=== PATIENT | female | born 1940 | race Caucasian/White ===

== ENCOUNTER 2020-12-25 10:00 | Emergency (ER) | payer MEDICARE ==
[~2020-12-25] VITALS: Ht 152.4 cm; Wt 78.6 kg
[~2020-12-25 10:00] MED LIST: SULF1TAB23 PO; THYR60TA PO
--- NOTE | 2020-12-25 10:06 | PHYS DOC ---
Past History Past Medical History: Asthma, High Cholesterol, Hypothyroid, TIA Past Surgical History: Cholecystectomy, Hysterectomy Alcohol Use: None Drug Use: None General Adult EDM: Chief Complaint: ALTERED MENTAL STATUS HPI: HPI: 80 yo F PMH Asthma, High Cholesterol, Hypothyroid, and TIA presents to the ed bibems as a code stroke, c/o "I just didn't feel right," with c/o "burst in my head," that started at 4am, and pt went "ker-plop" to the floor after her right leg gave out. Reports LOC and was able to get up right after but states she feels "woosy," like she can't keep her head up. Reports right arm/leg weakness that started upon wakening at 4am (went to bed 11pm). Also c/o right sided anterior neck pain. Has no active headache. States she has pain from her right hip down her leg, "like I'm having a DVT." Per EMS has a h/o stuttering but usually not as bad as it is today. Daughter later present in ED (daughter and son have dpoa) and report patient is only on medication for heartburn-follows with Dr. Goodrich.. Review of Systems: Review of Systems: Constitutional: Denies fever or chills Eyes: Denies change in visual acuity HENT: Denies nasal congestion or sore throat Respiratory: Denies cough or shortness of breath Cardiovascular: Denies chest pain or edema GI: Denies abdominal pain, nausea, vomiting, bloody stools or diarrhea : Denies dysuria Musculoskeletal: Denies back pain or joint pain Integument: Denies rash Neurologic: Denies headache, focal weakness or sensory changes Endocrine: Denies polyuria or polydipsia Lymphatic: Denies swollen glands Psychiatric: Denies depression or anxiety Allergies: Allergies: Allergies Coded Allergies Type Severity Reaction Last Updated Verified Penicillins Allergy Unknown 05/16/16 Yes atorvastatin Allergy Unknown 05/16/16 Yes cephalexin Allergy Unknown 05/16/16 Yes ciprofloxacin Allergy Unknown WEAKNESS 05/16/16 Yes diazepam Allergy Unknown 05/16/16 Yes tramadol Allergy Unknown 05/16/16 Yes Physical Exam: PE: Constitutional: Well developed, well nourished, no acute distress, non-toxic appearance. HENT: Normocephalic, atraumatic, stuttered/comprehensible speech Eyes: PERRLA, EOMI, conjunctiva normal, no discharge. Neck: Normal range of motion, supple, Cardiovascular: S1/2 present, regular rhythm Lungs & Thorax: Speaking in full sentences, bilateral equal chest rise, no tachypnea or increased work of breathing Abdomen: soft, no tenderness, Skin: Warm, dry, no erythema, no rash. [] Back: No midline tenderness, no CVA tenderness. [] Extremities: No tenderness, no cyanosis, Neurologic: 3 points NIH Stroke Scale, Alert and oriented to self /place/month/president-does not know the year, moves all 4 extremities - drift of RUE/RLE and decreased sensation RLE, no focal deficits noted. [] Psychologic: Affect normal, judgement normal, mood normal. [] EKG: EKG: Sinus rhythm at 63 bpm, no axis deviation, normal intervals, T wave inversion 3 V1 and V2, right bundle branch block present, QRS 132, no ST elevations or ST depressions, small nonpathological Q waves in 1 and aVL, no active chest pain Radiology/Procedures: Radiology/Procedures: IMAGING REPORT Signed PATIENT: AUBRIE LUJAN ACCOUNT: [id number] : 1940 LOCATION: ER AGE: 80 SEX: F EXAM STATUS: REG ER ORD. PHYSICIAN: LIUDMILA DAVENPORT DO REASON: headache, right neck pain, PROCEDURE: CT CODE STROKE HEAD WO CT scan of the head without contrast 12/25/20 Clinical History: Headache. Right sided pain. Code stroke. Technique: Unenhanced, contiguous, 5 mm axial sections were obtained through the head. One or more of the following individualized dose reduction techniques were utilized for this study: 1. Automated exposure control. 2. Adjustment of the mA and/or kV according to patient size. 3. Use of iterative reconstruction technique. Findings: There is generalized parenchymal atrophy. Areas of decreased attenuation are seen within the periventricular and subcortical white matter of both cerebral hemispheres consistent with areas of small vessel ischemic disease. No acute parenchymal abnormality is seen. No extra-axial fluid collection is noted. No skull fracture is seen. Impression: No acute intracranial abnormality is seen. This result was called to Dr. Davenport at 1012 hours. FOR INTERNAL CODING PURPOSES RESULT CODE: (C) Electronically signed by: Shamar Tian MD (12/25/2020 10:15 AM) [id number] DICTATED AND SIGNED BY: SHAMAR TIAN MD DATE: 12/25/20 1010 CC: LIUDMILA DAVENPORT DO; CARMEN GOODRICH MD ~MTH0 0 IMAGING REPORT Signed PATIENT: AUBRIE LUJAN ACCOUNT: [id number] : 1940 LOCATION: ER AGE: 80 SEX: F EXAM STATUS: REG ER ORD. PHYSICIAN: LIUDMILA DAVENPORT DO REASON: nekc pain PROCEDURE: CHEST AP ONLY EXAM: Chest, single view. HISTORY: Pain. COMPARISON: None. FINDINGS: A frontal view of the chest is obtained. There is no infiltrate, pleural effusion or pneumothorax. The heart is normal in size. IMPRESSION: No acute pulmonary finding. Electronically signed by: Lashell Harvey MD (12/25/2020 10:16 AM) [id number] DICTATED AND SIGNED BY: LASHELL HARVEY MD DATE: 12/25/20 1015 CC: LIUDMILA DAVENPORT DO; CARMEN GOODRICH MD ~MTH0 0 IMAGING REPORT Signed PATIENT: AUBRIE LUJAN ACCOUNT: [id number] : 1940 LOCATION: ER AGE: 80 SEX: F EXAM STATUS: REG ER ORD. PHYSICIAN: LIUDMILA DAVENPORT DO REASON: right neck pain PROCEDURE: CT ANGIOGRAPHY HEAD AND NECK EXAM: Head angiogram of the head and neck with intravenous contrast; cervical spine CT without contrast. HISTORY: Neck pain. TECHNIQUE: Computed tomographic images of the head and neck were obtained following the administration of contrast and noncontrast images of the cervical spine were obtained. 3-dimensional maximum intensity projection images were obtained. *One or more of the following individualized dose reduction techniques were utilized for this examination: 1. Automated exposure control. 2. Adjustment of the mA and/or kV according to patient size. 3. Use of iterative reconstruction technique. COMPARISON: None. FINDINGS: The visualized aortic arch is normal in caliber. There is calcified atherosclerotic plaque involving the aortic arch and arch great vessels. The origins of the innominate and left common carotid arteries are excluded from the [id number]. There is no significant stenosis at the origin of the right subclavian or common carotid artery or left subclavian artery. There is calcified atherosclerotic plaque at the origin of the right vertebral artery, with 50-69 percent stenosis. There is calcified atherosclerotic plaque within the distal right vertebral artery resulting in 50 percent stenosis and slight relative decreased caliber of the right vertebral artery extending to the basilar artery. The vertebral arteries are otherwise codominant and widely patent. There is calcified atherosclerotic plaque involving the right carotid bulb and origin of the right internal carotid artery, with less than 25 percent stenosis. There is minimal calcified plaque at the left carotid bulb and origin of the left internal carotid artery, without stenosis. There is calcified atherosclerotic plaque within the cavernous and supraclinoid internal carotid arteries. This results in less than 50 percent stenosis on the left and 50-69 percent stenosis on the right. The basilar artery is widely patent. The posterior communicating arteries are likely developmentally absent. There is a tiny communicating artery. There is no aneurysm. There is no vascular malformation. There is no suspicious enhancing lesion. There is mild cerebral atrophy. There is decreased attenuation within the cerebral white matter, most commonly due to chronic small vessel disease in patients of this age. There is evidence of lens surgery. There is a small left maxillary sinus mucous retention cyst. The mastoid air cells are clear. The p arotid and submandibular glands are unremarkable. There is a small calcification along the anterior aspect of the right thyroid gland. No thyroid nodule is seen. There is no neck lymphadenopathy. The airways midline and mildly patent. The lung apices are unremarkable. There is minimal anterolisthesis of C3 on C4 and C4 on C5. There is degenerative endplate remodeling throughout the cervical and visualized thoracic spine, primarily at C6-C7. There is disc space narrowing, vacuum phenomenon and Schmorl's node formation at this level. There is multilevel facet arthropathy. The right facet joints at C2-C3 are fused. There is no fracture or suspicious osseous lesion. At C2-C3, there is mild right facet arthropathy. There is no stenosis. At C3-C4, there is a shallow posterior central to left paracentral disc protrusion. There is moderate right greater than left facet arthropathy. There is no stenosis. At C4-C5, there is a disc bulge. There is severe right and moderate left facet arthropathy. There is no stenosis. At C5-C6, there is a disc bulge and endplate remodeling. There is severe right and moderate left facet arthropathy. There is left uncovertebral arthropathy. There is no stenosis. At C6-C7, there is a disc bulge and endplate osteophytosis. There is mild bilateral facet arthropathy. There is uncovertebral arthropathy. There is no stenosis. IMPRESSION: 1. Partially calcified atherosclerotic plaque involving the greater than left cavernous and supraclinoid internal carotid arteries, resulting in 50-69 percent stenosis on the right and less than 50 percent stenosis on the left. There is also mild atherosclerotic plaque involving the carotid bifurcations with less than 50 percent stenosis. 2. Partially calcified atherosclerotic plaque involving the origin and distal aspects of the right vertebral artery, resulting in 50-69 percent stenosis of the origin and less than 50 percent stenosis within its distal aspect. 3. No evidence of arterial occlusion or aneurysm. 4. Multilevel degenerative change involving the cervical spine, described above. There is no acute osseous finding. PQRS Compliance Statement - Stenosis calculations for CT, MR and conventional angiography are based upon measurement of the distal ICA diameter in accordance with the NASCET methodology. Stenosis calculations for carotid ultrasound studies are derived from validated velocity criteria which are known to correlate with the NASCET methodology. Electronically signed by: Lashell Harvey MD (12/25/2020 11:51 AM) [id number] DICTATED AND SIGNED BY: LASHELL HARVEY MD DATE: 12/25/20 1140 CC: LIUDMILA DAVENPORT DO; CARMEN GOODRICH MD ~MTH0 0 Heart Score: C/O Chest Pain: No Risk Factors: Risk Factors: DM, Current or recent (<one month) smoker, HTN, HLP, family history of CAD, obesity. Risk Scores: Score 0 - 3: 2.5% MACE over next 6 weeks - Discharge Home Score 4 - 6: 20.3% MACE over next 6 weeks - Admit for Clinical Observation Score 7 - 10: 72.7% MACE over next 6 weeks - Early Invasive Strategies Course & Med Decision Making: Course & Med Decision Making Pertinent Labs and Imaging studies reviewed. (See chart for details) Concern for right upper extremity and lower extremity weakness, LKW 11pm with syncope. Initially spoke to Dr. Orona, vascular surgery who informed me atherosclerotic plaque involving carotid arteries are intracranial not cervical. I discussed with [facility] Dr. Florian neurology interventionalist, Dr. Lamas, neurologist and Dr. Lopez, admitting physician regarding intracranial carotid stenosis, worse on right than left. Their recommendations are that this area of the brain is very common to have calcifications and are difficult to evaluate on the CT of the head, most likely an overcall radiologic reading. They recommended MRI and MRA of the head and to initiate aspirin and Plavix if no contraindications. They also mention intervention in this area of the brain is typically performed on last 90% occluded and symptomatic-even still there is a risk of stroke "this high up." We will transfer to [facility] for syncope evaluation and MRI (no MRI at [facility]), for higher level of care. Patient's labs and urinalysis are unremarkable, no renal insufficiency. Patient not on any medications for hypertension or hyperlipidemia. Patient stable at time of transfer and her and daughter agree with this plan. I have spoken with the patient and/or caregivers. I have explained the patient's condition, diagnosis and treatment plan based on the information available to me at this time. I have answered the patient's and/or caregivers questions and answered any concerns. The patient and/or caregivers have as good an understanding of the patient's diagnosis, condition and treatment plan as can be expected at this point. The patient has been stabilized within the capability of the emergency department. The patient will be transported for further care and management or will be moved to an observation or inpatient service. I have communicated with the staff or medical practitioner taking over this patient's care. Critical Care: Authorized and Performed by: Liudmila Davenport DO Total critical care time: approximately 35 minutes Due to a high probability of clinically significant, life threatening deterioration, the patient required my highest level of preparedness to intervene emergently and I personally spent this critical care time directly and personally managing the patient. This critical care time included obtaining a history; examining the patient; pulse oximetry; ventilator management if necessary; ordering and review of studies; arranging urgent treatment with development of a management plan; evaluation of patient's response to treatment; frequent reassessment; discussion with patient/family; and, discussions with other providers. This critical care time was performed to assess and manage the high probability of imminent, life-threatening deterioration that could result in multi-organ failure. It was exclusive of separately billable procedures and treating other patients and teaching time. Please see MDM section and the rest of the note for further information on patient assessment and treatment. Dragon Disclaimer: Dragon Disclaimer: This electronic medical record was generated, in whole or in part, using a voice recognition dictation system. Departure Departure: Impression: Primary Impression: Right sided abdominal pain Additional Impressions: Syncope and collapse Intracranial atherosclerosis Disposition: 05 DC/TRF OTHER TYPE INSTITUTI ([facility], Dr. Hoffman) Admitting Physician: Other Condition: CRITICAL Referrals: LIUDMILA TIPTON (PCP) LIUDMILA DAVENPORT DO Dec 25, 2020 10:06
--- NOTE | 2020-12-25 10:17 | RAD ---
CT scan of the head without contrast 12/25/20 Clinical History: Headache. Right sided pain. Code stroke. Technique: Unenhanced, contiguous, 5 mm axial sections were obtained through the head. One or more of the following individualized dose reduction techniques were utilized for this study: 1. Automated exposure control. 2. Adjustment of the mA and/or kV according to patient size. 3. Use of iterative reconstruction technique. Findings: There is generalized parenchymal atrophy. Areas of decreased attenuation are seen within t he periventricular and subcortical white matter of both cerebral hemispheres consistent with areas of small vessel ischemic disease. No acute parenchymal abnormality is seen. No extra-axial fluid collec tion is noted. No skull fracture is seen. Impression: No acute intracranial abnormality is seen. This result was called to Dr. Vidal at 1012 hours. FOR INTERNAL CODING PURPOSES RESULT CODE: (C) Electronically signed by: Shamar Tian MD (12/25/2020 10:15 AM) [id number]
--- NOTE | 2020-12-25 10:18 | RAD ---
EXAM: Chest, single view. HISTORY: Pain. COMPARISON: None. FINDINGS: A frontal view of the chest is obtained. There is no infiltrate, pleural effusion or pneumo thorax. The heart is normal in size. IMPRESSION: No acute pulmonary finding. Electronically signed by: Vicki Peacock MD (12/25/2020 10:16 AM) [id number]
[2020-12-25 10:33] LABS: BASO % 1 % (0-3); EOS # 0.1 x10^3/uL (0.0-0.7); EOS % 2 % (0-3); HEMATOCRIT 41.3 % (36.0-47.0); HEMOGLOBIN 13.5 g/dL (12.0-15.5); LYMPH # 1.4 x10^3/uL (1.0-4.8); LYMPH % 34 % (24-48); MEAN CORPUSCULAR HEMOGLOBIN 29 pg (25-35); MEAN CORPUSCULAR HGB CONC 33 g/dL (31-37); MEAN CORPUSCULAR VOLUME 90 fL (79-100); MONO # 0.4 x10^3/uL (0.0-1.1); MONO % 9 % (0-9); NEUT # 2.3 x10^3uL (1.8-7.7); NEUT % 55 % (31-73); PLATELET COUNT 210 x10^3/uL (140-400); RED BLOOD COUNT 4.61 x10^6/uL (3.50-5.40); RED CELL DISTRIBUTION WIDTH 14.5 % (11.5-14.5); WHITE BLOOD COUNT 4.3 x10^3/uL (4.0-11.0)
[2020-12-25 10:45] LABS: CALCIUM 9.3 mg/dL (8.5-10.1); CREATININE 0.7 mg/dL (0.6-1.0); GFR 80.1
[2020-12-25] MEDS ORDERED: IOHEXOL 350 MG/ML 100 ML VIAL. IV ONE (10:45)
[2020-12-25 10:58] LABS: ALBUMIN 3.7 g/dL (3.4-5.0); ALBUMIN/GLOBULIN RATIO 0.9 (1.0-1.7); MAGNESIUM 2.1 mg/dL (1.8-2.4); TOTAL BILIRUBIN 0.4 mg/dL (0.2-1.0); TOTAL PROTEIN 7.6 g/dL (6.4-8.2)
[2020-12-25 11:30] LABS: BARBITURATES NEG (NEG); BENZODIAZEPINES NEG (NEG); BILIRUBIN,URINE NEG (NEG); CANNABINOIDS NEG (NEG); CLARITY,URINE CLEAR; COCAINE NEG (NEG); COLOR,URINE YELLOW; GLUCOSE,URINE NEG (NEG); METHADONE NEG (NEG); OPIATES NEG (NEG); PHENCYCLIDINE NEG (NEG)
[2020-12-25 11:31] LABS: BACTERIA,URINE FEW /HPF (0-FEW); NITRITE,URINE NEG (NEG); RBC,URINE 0 /HPF (0-2); SQUAMOUS EPITHELIAL CELL,UR FEW /LPF; UROBILINOGEN,URINE 0.2 mg/dL (0.2 mg/dL); WBC,URINE 0 /HPF (0-4)
[2020-12-25 11:35] LABS: AMPHETAMINE/METHAMPHETAMINE NEG (NEG)
--- NOTE | 2020-12-25 11:53 | RAD ---
EXAM: Head angiogram of the head and neck with intravenous contrast; cervical spine CT without contra st. HISTORY: Neck pain. TECHNIQUE: Computed tomographic images of the head and neck were obtained following the administratio n of contrast and noncontrast images of the cervical spine were obtained. 3-dimensional maximum inten sity projection images were obtained. *One or more of the following individualized dose reduction techniques were utilized for this examina tion: 1. Automated exposure control. 2. Adjustment of the mA and/or kV according to patient size. 3. Use of iterative reconstruction technique. COMPARISON: None. FINDINGS: The visualized aortic arch is normal in caliber. There is calcified atherosclerotic plaque involving the aortic arch and arch great vessels. The origins of the innominate and left common carot id arteries are excluded from the [id number]. There is no significant stenosis at the origin of th e right subclavian or common carotid artery or left subclavian artery. There is calcified atheroscler otic plaque at the origin of the right vertebral artery, with 50-69 percent stenosis. There is calcif ied atherosclerotic plaque within the distal right vertebral artery resulting in 50 percent stenosis and slight relative decreased caliber of the right vertebral artery extending to the basilar artery. The vertebral arteries are otherwise codominant and widely patent. There is calcified atherosclerotic plaque involving the right carotid bulb and origin of the right in ternal carotid artery, with less than 25 percent stenosis. There is minimal calcified plaque at the l eft carotid bulb and origin of the left internal carotid artery, without stenosis. There is calcified atherosclerotic plaque within the cavernous and supraclinoid internal carotid arteries. This results in less than 50 percent stenosis on the left and 50-69 percent stenosis on the right. The basilar ar leon is widely patent. The posterior communicating arteries are likely developmentally absent. There is a tiny communicating artery. There is no aneurysm. There is no vascular malformation. There is no suspicious enhancing lesion. There is mild cerebral atrophy. There is decreased attenuation within the cerebral white matter, most commonly due to chronic small vessel disease in patients of this age. There is evidence of lens surg liza. There is a small left maxillary sinus mucous retention cyst. The mastoid air cells are clear. Th e parotid and submandibular glands are unremarkable. There is a small calcification along the anterio r aspect of the right thyroid gland. No thyroid nodule is seen. There is no neck lymphadenopathy. The airways midline and mildly patent. The lung apices are unremarkable. There is minimal anterolisthesis of C3 on C4 and C4 on C5. There is degenerative endplate remodeling throughout the cervical and visualized thoracic spine, primarily at C6-C7. There is disc space narrow ing, vacuum phenomenon and Schmorl's node formation at this level. There is multilevel facet arthropa thy. The right facet joints at C2-C3 are fused. There is no fracture or suspicious osseous lesion. At C2-C3, there is mild right facet arthropathy. There is no stenosis. At C3-C4, there is a shallow posterior central to left paracentral disc protrusion. There is moderate right greater than left facet arthropathy. There is no stenosis. At C4-C5, there is a disc bulge. There is severe right and moderate left facet arthropathy. There is no stenosis. At C5-C6, there is a disc bulge and endplate remodeling. There is severe right and moderate left face t arthropathy. There is left uncovertebral arthropathy. There is no stenosis. At C6-C7, there is a disc bulge and endplate osteophytosis. There is mild bilateral facet arthropathy . There is uncovertebral arthropathy. There is no stenosis. IMPRESSION: 1. Partially calcified atherosclerotic plaque involving the greater than left cavernous and supraclin oid internal carotid arteries, resulting in 50-69 percent stenosis on the right and less than 50 perc ent stenosis on the left. There is also mild atherosclerotic plaque involving the carotid bifurcation s with less than 50 percent stenosis. 2. Partially calcified atherosclerotic plaque involving the origin and distal aspects of the right ve rtebral artery, resulting in 50-69 percent stenosis of the origin and less than 50 percent stenosis w ithin its distal aspect. 3. No evidence of arterial occlusion or aneurysm. 4. Multilevel degenerative change involving the cervical spine, described above. There is no acute os seous finding. PQRS Compliance Statement - Stenosis calculations for CT, MR and conventional angiography are based u alicia measurement of the distal ICA diameter in accordance with the NASCET methodology. Stenosis calcu lations for carotid ultrasound studies are derived from validated velocity criteria which are known t o correlate with the NASCET methodology. Electronically signed by: Vicki Peacock MD (12/25/2020 11:51 AM) [id number]
--- NOTE | 2020-12-25 13:49 | EKG ---
[address] [address] Test Date: 2020-12-25 Test Time: 10:18:31 Pat Name: AUBRIE LUJAN Department: Room: Gender: F Certified Personal Finance Counselor: ASHLEY : 1940 Requested By: EBONIE DAVENPORT Order Number: [id number] Reading MD: Measurements Intervals [place] Rate: 63 P: 59 PA: 176 QRS: -63 QRSD: 132 T: 0 QT: 444 QTc: 458 Interpretive Statements SINUS RHYTHM ABNORMAL LEFT AXIS DEVIATION LEFT ANTERIOR FASCICULAR BLOCK RIGHT BUNDLE BRANCH BLOCK BIFASCICULAR BLOCK ABNORMAL ECG RI6.02 No previous ECG available for comparison
[2020-12-25 16:13] VITALS: BP 161/78
== END 2020-12-25 16:43 | disposition short-term general hospital (02) ==
LOC: ER 10:00
DX: R55 Syncope and collapse (principal); R41.82 Altered mental status, unspecified; I70.90 Unspecified atherosclerosis; R10.9 Unspecified abdominal pain; J45.909 Unspecified asthma, uncomplicated; E78.00 Pure hypercholesterolemia, unspecified; E03.9 Hypothyroidism, unspecified; Z86.73 Personal history of transient ischemic attack (TIA), and cerebral infarction without residual deficits; Z90.49 Acquired absence of other specified parts of digestive tract; Z90.710 Acquired absence of both cervix and uterus; Z88.0 Allergy status to penicillin; Z88.8 Allergy status to other drugs, medicaments and biological substances; Z88.1 Allergy status to other antibiotic agents
CPT/HCPCS: 36415; 70450; 70496; 70498; 71045; 72125; 80053; 80307; 81001; 82550; 82947; 83735; 84484; 85025; 85610; 85730; 93005; 99285-25